=== PATIENT | male | born 1960 | race Caucasian/White ===

== ENCOUNTER 2018-01-26 12:55 | Day surgery (SDC) | payer BC ==
[2018-01-26] MEDS ORDERED: LIDOCAINE 2% MDV (20MG/ML) 20ML VIAL IV ONE (12:56)
[2018-01-26] MEDS ORDERED: PROPOFOL 10 MG/ML VIAL IV ONE (12:56)
--- NOTE | 2018-01-27 13:20 | Operative Note ---
DATE OF SURGERY: 01/26/2018 OPERATION: COLONOSCOPY with cold snare polypectomy. PREOPERATIVE DIAGNOSIS: Colon cancer screening. POSTOPERATIVE DIAGNOSIS: Transverse colon polyp. PREPARATION QUALITY: Excellent. ESTIMATED BLOOD LOSS: Minimum. SPECIMENS: Transverse colon polyp. COMPLICATIONS: None apparent. PROCEDURE: After informed consent was obtained from the patient, he was placed in the left lateral decubitus position in the endoscopy suite, sedated and monitored by the department of anesthesia. Digital rectal exam was unremarkable. A well-lubricated PM650JY colonoscope was inserted into the rectum and advanced to the cecum. Preparation quality was excellent. The cecum, ileocecal valve, appendiceal orifice, and ascending colon were unremarkable. In the distal transverse colon, there was a 5 mm polyp removed with a cold snare. The polyp was retrieved without difficulty. Minimal bleeding was noted at the site. The remainder of the transverse colon, descending colon, sigmoid colon, and rectum were unremarkable. Forward and J-turn views of the rectum and anorectum were unrevealing. The endoscope was straightened, the rectal ampulla deflated, and the endoscope was removed. RECOMMENDATIONS: I would suggest the patient resume his medications and diet. He will require repeat exam in 5 years pending tissue histology. As always, thank you for allowing me to participate in the healthcare of your patients. CC: OSCAR Aguilar
== END 2018-01-26 14:02 | disposition home or self-care (01) ==
LOC: HOP 12:55
PROVIDERS: ATTEND Internal Medicine Gastroenterology
DX: Z12.11 Encounter for screening for malignant neoplasm of colon (principal); D12.3 Benign neoplasm of transverse colon